=== PATIENT | female | born 1950 | race Caucasian/White ===

== ENCOUNTER → 2016-09-09 | Day surgery (SDC) | payer MEDICARE, OTHER ==
[~2016-09-09] MED LIST: ALKA-SELTZER P1 EACH PO; CALCIUM 500 + D1 TAB PO; CALTRATE 600+D PO; CERTAGEN PO; FOSAMAX PO; IBUPROFEN200 M1 PO; LEXAPRO5 MG PO; LUTEIN PO; MIRALAX17 G2; MULTI VITAMIN1 EACH PO; PROTONIX PO; TYLENOL #3; VITAMIN C PO; ZEAXANTHIN PO; [UNRECOGNIZED DRUG - OTHER] PO; [UNRECOGNIZED DRUG - OTHER] PO
--- NOTE | ~2016-09-09 | OR ---
Unit #: [id number] #: [id number] Patient: ERICH LANG [id number] [address] [place], [place] [address] [id number] MR#: [id number] NAME: ERICH LANG ROOM: Date of Procedure: 09/09/2016 Admission Date: 09/09/2016 Surgeon: Joey Tobias M.D. : 1950 Attending Physician: Joey Tobias M.D. Primary Care Physician: Paula Gallardo A.P.R.N. OPERATIVE REPORT PRIMARY CARE PHYSICIAN Paula Gallardo A.P.R.N. PREOPERATIVE DIAGNOSES Epigastric pain, dyspepsia, and abdominal distention. In addition, the patient mentions refractory constipation. She is come for elective upper endoscopy and colonoscopy. PROCEDURES PERFORMED Upper gastrointestinal endoscopy and biopsy as well as colonoscopy up to cecum and terminal ileum. POSTOPERATIVE DIAGNOSES For upper endoscopy: 1. The patient had moderately severe distal erosive or ulcerative esophagitis. 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 Appropriate biopsies obtained. 2. Rest of examination up to third part of duodenum was normal. 3. Biopsy obtained from the antrum for CLOtest. For colonoscopy: 1. Mild diverticulosis of the right colon. Otherwise normal examination up to cecum and terminal ileum. The quality of the prep was excellent. No polyps were seen. RECOMMENDATIONS The patient is advised to use daily MiraLAX and p.r.n. Senokot. She will be followed up in the office in 3 months' time. In addition, she is also being started on pantoprazole 40 mg p.o. daily. She will be followed up in the office in 3 months' time. SEDATION USED MAC. DESCRIPTION OF PROCEDURE Following detailed explanation of the potential risks and complications of an upper endoscopy and a colonoscopy, namely perforation, bleeding, and complications related to sedation, the patient was brought to GI lab and laid in the left lateral decubitus position. Lubricated tip of the Olympus video upper endoscope was passed through the bite block into the proximal esophagus under direct vision. The entire esophageal mucosa was examined. The patient was noted to have moderately severe distal confluent ulcerative esophagitis. In addition, there were tongues of Unit #: [id number] #: [id number] Patient: PRECIOUS,ERICH J columnar mucosa ascending above the gastroesophageal junction suggestive of Orr esophagus. The scope was then advanced into the gastric cavity and the latter was insufflated. Mucosa of the fundus, body, and antrum was examined and appeared unremarkable. Pylorus was intubated with visualization of the normal duodenal bulb and second and third part of the duodenum. Upon withdrawal and retroflexion, incisura, cardia, and greater curve examined and biopsy obtained from the antrum for CLOtest. The scope was then withdrawn in the distal esophagus. Biopsies also obtained of the distal esophageal mucosa from the Orr segment and sent for histology. The entire esophageal mucosa was examined all the way up to pharynx. No additional findings noted. The examination table was then turned by 180 degrees and the patient positioned for a colonoscopy. A digital rectal examination was performed, which was normal. Lubricated tip of the Olympus video colonoscope was inserted through the anus and advanced under direct vision. The scope was advanced and passed up to sigmoid into descending colon. No diverticula were seen in this area. The scope tip was then navigated all the way up to cecum with visualization of the ileocecal valve and the appendiceal orifice. Preparation was excellent with good visualization and photodocumentation was obtained. Last several inches of the terminal ileum were also visualized and appeared normal. Successive segments of the colonic mucosa were examined upon withdrawal. The patient was found to have scant diverticula in the right colon. Otherwise, examination was normal throughout the entire colon. No polyps were seen. No angiodysplasia was present. The patient did not have any hemorrhoids at anal verge. The scope was withdrawn. The patient returned to recovery area. She tolerated the procedure without any postprocedure complications. Dictated by... Jose Dior TD: 09/09/2016 23:13 JOB #: [id number] CC: . OPERATIVE REPORT X Joey Tobias MD X PROCEDURE OPERATIVE NOTE
[2016-09-09 09:01] LABS: BASOPHIL# 0.1 X10e3 (0-0.3); BASOPHIL% 1.7 % (0-2.5); EOSINOPHIL# 0.1 X10e3 (0-0.7); EOSINOPHIL% 2.7 % (0.0-7.0); HEMATOCRIT 41.5 % (35.0-45.0); HEMOGLOBIN 14.1 gm/dL (12.0-16.0); LYMPHOCYTE# 1.3 X10e3 (1.0-3.5); LYMPHOCYTE% 33.4 % (17.0-45.0); MEAN CELL VOLUME 89.5 FL (83-96); MEAN CORPUSCULAR HEMOGLOBIN 30.4 PG (28-34); MEAN PLATELET VOLUME 7.4 FL (6.5-11.5); MONOCYTE# 0.5 X10e3 (0-1.0); MONOCYTE% 11.5 % (3.0-12.0); NEUTROPHIL% 50.7 % (40-75); PLATELET COUNT 228 X10e3 (140-420); RED BLOOD COUNT 4.64 X10e (3.90-5.30); RED CELL DISTRIBUTION WIDTH 13.1 % (11.0-15.5)
[2016-09-09 09:04] LABS: DIFF IND NO
[2016-09-09 09:34] LABS: ALBUMIN SERUM 4.1 g/dL (3.5-5.0); ALKALINE PHOSPHATASE 67 U/L (32-92); ALT (SGPT) 40 U/L (10-40); AMYLASE 14 U/L (0-46); AST (SGOT) 30 U/L (10-42); BILIRUBIN,TOTAL 0.8 mg/dL (0.2-2.0); BLOOD UREA NITROGEN 14 mg/dL (9-23); CALCIUM SERUM 8.9 mg/dL (8.4-10.2); CARBON DIOXIDE 26 mmol/L (22-31); CHLORIDE 104 mmol/L (100-111); CREATININE SERUM 0.8 mg/dL (0.6-1.4); GLOM FILT RATE Estimated ABOVE60 mL/min (>60); GLUCOSE FASTING 84 mg/dL (70-110); LIPASE 35 U/L (22-51); POTASSIUM 3.9 mmol/L (3.5-5.1); PROTEIN TOTAL SERUM 7.3 g/dL (6.0-8.3); SODIUM 138 mmol/L (135-145)
== END | disposition home or self-care (01) ==
LOC: COPS 08:09
PROVIDERS: Internal Medicine Gastroenterology
DX: K21.0 Gastro-esophageal reflux disease with esophagitis (principal); K22.70 Barrett's esophagus without dysplasia; K57.30 Diverticulosis of large intestine without perforation or abscess without bleeding; M85.80 Other specified disorders of bone density and structure, unspecified site; F41.9 Anxiety disorder, unspecified; F32.9 Major depressive disorder, single episode, unspecified; Z86.19 Personal history of other infectious and parasitic diseases; Z79.1 Long term (current) use of non-steroidal anti-inflammatories (NSAID); Z79.899 Other long term (current) drug therapy; Z98.890 Other specified postprocedural states
CPT/HCPCS: 80053; 82150; 83690; 85025; 87077; 88305; J2250